=== PATIENT | male | born 2005 | race Caucasian/White ===

== ENCOUNTER 2025-07-08 14:45 | Outpatient (RCR) | payer OTHER, SELFPAY ==
[2025-06-24 10:01] VITALS: BP 135/93; PULSE 68; RESP 14; TEMP 36.3
--- NOTE | 2025-06-25 09:54 | PCM.WC.PN ---
History of Present Illness Date of Service: 06/24/25 Chief Complaint: The patient is a 20-year-old male presenting with hidradenitis suppurativa. The condition began over a year ago as a single lesion and has progressively worsened, particularly over the summer, with increased flare-ups and the development of two cysts adjacent to each other. The lesions have been bleeding and producing pus, prompting the patient to seek dermatological consultation. The biometrics consultant referred him to us for potential excision. The patient denies any history of smoking, which is beneficial as smoking can exacerbate hidradenitis suppurativa. He reports no significant medical problems aside from taking Lexapro daily. 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 ROS: - Dermatological: Reports bleeding and pus from cystic lesions. - General: Denies smoking history. - Psychiatric: Reports daily use of Lexapro. No history of Crohn's/Inflammatory Bowel Disease Attestation: Documentation on this patient encounter was supported using ambient scribe technology/ voice AI technology. The patient consented to recording for the purpose of documenting the encounter. Provider reviewed content of the generated note prior to signature. Subjective Subjective Current encounter 24 June 2025: Patient here for follow-up for hidradenitis. He has not yet had his appointment with colorectal surgery but is in the scheduling process with their team (referral made at last visit for a sinus tract within the perineum just anterior to the anus). He presents with some improvement today secondary to starting the doxycycline per his biometrics consultant. The areas are less inflamed and there is less drainage. Objective Data Objective Data Vital Signs: Vital Signs Temp Pulse Resp BP 97.4 F L 68 14 135/93 H 06/24/25 10:01 06/24/25 10:01 06/24/25 10:06/24/25 10:01 Charges/Coding Procedures Integumentary [id number]: [id number] Maren subq tissue 20 sq cm/< Physical Exam Narrative - Dermatological: Gluteal Region Examination revealed two cystic lesions near the gluteal cleft on the left, one with exophytic growth and another with sinus tract formation. Camejo Stage 2 HS These areas measure 1 x 2 cm and are in a small cluster. Perineum Between anus and scrotum there is a sinus tract with drainage consistent with HS. No surrounding induration or crepitus, no real TTP (no signs of surrounding acute infection, rather chronic Camejo stage 2 disease). Tunneling superiorly towards the anus ~3 cm. Debridement Note Debridement Note Wound debrided: Left gluteal wounds from the hidradenitis Laterality: Left Wound Grade/Stage: Stage III Type of Debridement: Excisional debridement Anesthesia Used: 4% Lidocaine Solution Depth: in the subcutaneous layer Percentage of wound debrided: 100 Instrument Used: 7mm curette, #15 blade and Forceps Tissue Removed: Necrotic fibrinous exudate and scar tracks around hidradenitis cavity Severity: Fat Layer Exposed Amount of bleeding with debridement: Mild Bleeding Controlled with: Compression and gauze Patient tolerated procedure: Patient tolerated procedure well Debridement Free Text: 15 blade scalpel was used to excise the left gluteal hidradenitis wounds and scar tracks that had developed around the draining sinuses. They were open for packing Post-Debridement Measurements and Additional Note: Post-Debridement Measurements/Treatment - Nurse 1 - General Ulcer Assessment Start: 06/24/25 10:01 Freq: Status: Active Protocol: RUTHIE.CARLOS Activity Type Activity Date Activity User E-sign Co-sign Detail Recorded Client Recorded Date Recorded By Document 06/24/25 10:01 [id number] 06/24/25 10:08 06/24/25 10:01 - Today's Visit Information Type of service Initial Visit Arrival Mode Ambulatory Transfer Assistance None Patient Identification Verified (Name & Yes ) Patient Requires Transmission-Based No Precautions Vital Signs Temperature (97.8 F-99.1 F) 97.4 F L Temperature Source Temporal Pulse Rate (60-100) 68 Pulse Location Monitor Respiratory Rate (12-18) 14 Respiratory rate source Observation Blood Pressure (90/60-120/80) 135/93 H Blood Pressure Mean (mm Hg) 107 Source Monitor Position Sitting Blood Pressure Location Left Arm History Since Last Visit- (Skip if this is Patient's initial visit) Have you changed medications since your No last visit? Any new allergies or adverse reactions No Had a fall/change in ADL's that may No increase risk of falls Signs or symptoms of abuse and/or No neglect since last visit Have you been in the hospital since your No last visit? Has dressing in place as prescribed Yes Has compression in place as prescribed N/A Has offloadiing in place as prescribed N/A Experienced any changes in pain level or No management Pain Scale: 0-10 Numeric Is Patient Pain Free? Yes - Nurse 1 - General Ulcer Measurement Start: 06/24/25 10:01 Freq: Status: Active Protocol: Activity Type Activity Date Activity User E-sign Co-sign Detail Recorded Client Recorded Date Recorded By Document 06/24/25 10:01 MELANY [id number] 06/24/25 10:08 MELANY 06/24/25 10:01 Wound Center Nurse 1 #1 coccyx cluster -Current Size (cm) - Length 0.1 -Current Size (cm) - Width 0.1 -Current Size (cm) - Depth 0.1 -Total Square Cm 0.01 -Exudate Amt None Present -Wound Margin Distinct, Outline Attached -Granulation Amt None Present (0 %) -Necrosis Amt None Present (0 %) -Texture (Komal-wound Skin Appearance) Assessed -Moisture (Komal-wound Skin Appearance) Assessed -Color (Komal-wound Skin Appearance) Erythema -Temperature (Komal-wound Skin No Abnormality Appearance) (Pt Warm) -Tenderness on Palpation (Komal-wound No Skin Appearance) -Ulcer Cleansing Rinsed/ Irrigated with Saline -Foul Odor after Cleansing No -Anesthetic Used 5% Lidocaine Gel - Nurse 2 - General Ulcer CM Notes Start: 06/24/25 10:01 Freq: Status: Active Protocol: Activity Type Activity Date Activity User E-sign Co-sign Detail Recorded Client Recorded Date Recorded By Document 06/24/25 10:39 NASEEM [id number] 06/24/25 10:50 NASEEM 06/24/25 10:39 Wound Center Nurse 2 -Time 10:46 -Correct Patient Yes -Correct Side, Site, Position Yes -Correct Procedure Yes -Procedure Performed Yes -Type of Procedure Debridement -Clinical Debridement Subcutaneous -Tissue Removed Subcutaneous -Post Debridement (cm) - Length 1 -Post Debridement (cm) - Width 1 -Post Debridement (cm) - Depth 2 -Total Square (Post) (cm) 1 -Area of Debridement (cm) - Length 1 -Area of Debridement (cm) - Width 1 -Total Square (Area) (cm) 1 -Tunneling No -Undermining/Tunneling No -Circular Undermining No -Wound/Ulcer Outcome Not Healed -Ulcer Cleansing Rinsed/ Irrigated with Saline -Foul Odor after Cleansing No -Bioengineered Tissue No -Bleeding Controlled with Pressure -Treatment Response Procedure Tolerated Well -Offloading No -Debridement - Subq, 1st 20sq cm Yes Pain Scale: 0-10 Numeric Is Patient Pain Free? Yes WC - Nurse 3 - General Ulcer D/C NN Start: 06/24/25 10:01 Freq: Status: Active Protocol: Activity Type Activity Date Activity User E-sign Co-sign Detail Recorded Client Recorded Date Recorded By Document 06/24/25 10:58 ML [id number] 06/24/25 10:59 ML 06/24/25 10:58 Wound Care Center Nurse 3 #1 coccyx cluster -Ulcer Cleansing Rinsed/ Irrigated with Saline -Primary Dressing Applied Aquacel AG 4x4 -Primary Dressing Covered/Secured with Dry Gauze, Secured with Tape -Aquacel AG 4x4 1 Pain Scale: 0-10 Numeric Is Patient Pain Free? Yes Assessment/Plan Assessment/Plan (1) Hidradenitis suppurativa: CODE(S): L73.2 - Hidradenitis suppurativa PLAN: Twice daily wet-to-dry dressings with Dakin's to the left gluteal wounds For the sinus tract and hidradenitis cavities around the anus he has been referred to colorectal surgery. The excised left gluteal wounds are deep and appear to tunnel significantly in the direction of the anus. I am concerned that there could be some sort of fistulous tract, and I am therefore happy with the plan that he is being referred to colorectal surgery . There was no purulent or feculent drainage on my exam today, so this is lower on the differential, but he needs to be worked up for this problem as these areas are very close to his anus. Also, planning to use electric shaver to reduce the hair burden in the area and keep the area clean with soapy water twice daily when he does the twice daily dressing changes (discussed). Patient will follow-up with Dr. Talavera, director of the wound care center, next week in the office, and will see me the following week. Continue plan for scheduling follow-up with colorectal surgery at [facility] (our office called them today and confirm that his referral is appropriately within the scheduling system and they are going to schedule him an appointment shortly).
--- NOTE | 2025-06-26 09:30 | WC ---
PHOTO-COCCYX 06/24/25
[2025-07-02 14:45] VITALS: BP 144/83; PULSE 72; RESP 16; TEMP 35.8
--- NOTE | 2025-07-03 12:53 | PCM.WC.HP ---
History of Present Illness Date of Service: 07/02/25 Chief Complaint: Hidradenitis suppurativa of the perineal and buttock region The condition began over a year ago as a single lesion and has progressively worsened, particularly over the summer, with increased flare-ups and the development of two cysts adjacent to each other. The lesions have been bleeding and producing pus, prompting the patient to seek dermatological consultation. The commercial baker helper referred him to us for potential excision. The patient denies any history of smoking, which is beneficial as smoking can exacerbate hidradenitis suppurativa. He reports no significant medical problems aside from taking Lexapro daily. 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 ROS: - Dermatological: Reports bleeding and pus from cystic lesions. - General: Denies smoking history. - Psychiatric: Reports daily use of Lexapro. No history of Crohn's/Inflammatory Bowel Disease Attestation: Documentation on this patient encounter was supported using ambient scribe technology/ voice AI technology. The patient consented to recording for the purpose of documenting the encounter. Provider reviewed content of the generated note prior to signature. History of Wound: This is a generally healthy 20-year-old male who presented recently for evaluation by Dr. Martins, Plastic Surgeon, relative to the development of sites in the perineal and buttock region which are suspected to represent hidradenitis suppurativa. According to the patient, these lesions have been present for approximately 1 year. The condition began over a year ago as a single lesion, and has progressively worsened, particularly over the summer, with increased flareups and the development of additional sites adjacent to each other. The lesions have been bleeding and draining suppurative material, prompting the patient to recently seek dermatological consultation. The commercial baker helper has referred to the [facility] for further evaluation and management, and for consideration of excision of the involved sites. The patient reports no significant medical problems aside from taking Lexapro daily. He is physically active, lifts weights at a local gym, and is employed in a warehouse. The patient denies a history of Crohn's disease or other inflammatory bowel diseases. He is not a smoker. [facility] Medical History no medical history no medical history Home Medications ?Medication ?Instructions ?Recorded ?Last Taken ?Type escitalopram oxalate 10 mg tablet 10 mg PO QDAY 06/14/25 Unknown History Allergy/AdvReac Type Severity Reaction Status Date / Time No Known Allergies Allergy Unverified 06/14/25 10:24 Social History Smoking Status: Never smoker Vital Signs Vital Signs Vital Signs: 07/02/25 14:45 Temperature 96.4 F L Temperature Source Temporal Pulse Rate 72 Respiratory Rate 16 Blood Pressure 144/83 H Blood Pressure Mean 103 Blood Pressure Source Monitor Blood Pressure Position Sitting Blood Pressure Location Right Arm Physical Exam Const alert, oriented x3, no apparent distress, average body habitus, no limitations, healthy appearing and well nourished General Appearance: cooperative, comfortable, well kempt and well developed Orientation / Consciousness: awake, oriented to person, oriented to place and oriented to time Exam Limitations: no limitations HEENT normocephalic and head/scalp atraumatic Head and Scalp: normal to inspection, normocephalic and atraumatic Face and Sinus: normal facial exam Nose: external nose normal External Ear: external ears normal Eyes EOMs intact bilaterally General Eye: normal appearance of both eyes Neck full ROM Resp normal respiratory effort, normal air movement, no retractions and no use of accessory muscles Effort and Inspection: able to speak in complete sentences Extremity no calf tenderness General Extremity: Negative for clubbing or cyanosis Skin Wound Narrative: An ulceration is noted on the left upper buttock. The ulceration appears to be full-thickness, extending through all layers of the dermis and into the subcutaneous tissues. The ulceration appears generally pink in appearance, with a small amount of bioburden. Dimensions are documented elsewhere. There is no sign of infection or cellulitis. There is a second ulceration noted within the cleft of the buttocks, located in the midline. It is several centimeters superior to the anus. It is quite small in size, and dimensions are documented elsewhere. However, there is tunneling of approximately 2 cm inferiorly, which is appreciated by virtue of gentle exploration with a probe. There is no drainage from this tunneled ulceration. There is no obvious sign of infection or cellulitis. Dimensions are documented elsewhere. Also of note is the fact that this area is extremely hairbearing. Furthermore, there is an erythematous rash within the intertriginous portion of the medial buttocks bilaterally. This has the appearance of a fungal or tenia infection (tenia cruris). Neuro oriented x3, CN's II-XII intact bilaterally, moves all extremities, no focal motor deficits and no sensory deficits noted Sensorium / Orientation: awake, alert, oriented to person, oriented to place and oriented to time Speech: speech normal Psych Appearance: grossly normal and appropriate Attitude: calm Activity / Motor Behavior: appropriate eye contact Speech: normal speech Mood & Affect: euthymic mood Thought Process: normal thought process Thought Content: normal thought content Attention / Concentration: attention grossly intact Debridement Note Debridement Note Wound debrided: Left upper buttock Laterality: Left Type of Debridement: Excisional debridement Anesthesia Used: 5% Lidocaine Gel Depth: Down to and including healthy tissue and in the subcutaneous layer Percentage of wound debrided: 100 Instrument Used: 3mm curette Tissue Removed: Bioburden Severity: Fat Layer Exposed Amount of bleeding with debridement: Mild Bleeding Controlled with: Compression and gauze Patient tolerated procedure: Patient tolerated procedure well Post-Debridement Measurements and Additional Note: Post-Debridement Measurements/Treatment - Nurse 1 - General Ulcer Assessment Start: 06/24/25 10:01 Freq: Status: Active Protocol: WERO Activity Type Activity Date Activity User E-sign Co-sign Detail Recorded Client Recorded Date Recorded By Document 06/24/25 10:01 ML [id number] 06/24/25 10:08 ML Document 07/02/25 14:45 KW [id number] 07/02/25 14:49 KW 06/24/25 07/02/25 10:01 14:45 - Today's Visit Information Type of service Initial Visit Follow-up Visit (Physician/ASSISTANT TERMINAL MANAGER ) Arrival Mode Ambulatory Ambulatory Transfer Assistance None None Patient Identification Verified (Name & Yes Yes ) Patient Requires Transmission-Based No No Precautions Vital Signs Temperature (97.8 F-99.1 F) 97.4 F L 96.4 F L Temperature Source Temporal Temporal Pulse Rate (60-100) 68 72 Pulse Location Monitor Monitor Respiratory Rate (12-18) 14 16 Respiratory rate source Observation Observation Blood Pressure (90/60-120/80) 135/93 H 144/83 H Blood Pressure Mean 107 103 Source Monitor Monitor Position Sitting Sitting Blood Pressure Location Left Arm Right Arm History Since Last Visit- (Skip if this is Patient's initial visit) Have you changed medications since your No No last visit? Any new allergies or adverse reactions No No Had a fall/change in ADL's that may No No increase risk of falls Signs or symptoms of abuse and/or No No neglect since last visit Have you been in the hospital since your No No last visit? Has dressing in place as prescribed Yes Yes Has compression in place as prescribed N/A N/A Has offloadiing in place as prescribed N/A N/A Experienced any changes in pain level or No No management Left Footwear Regular Shoe Right Footwear Regular Shoe Pain Scale: 0-10 Numeric Is Patient Pain Free? Yes Yes RUTHIE - Nurse 1 - General Ulcer Measurement Start: 06/24/25 10:01 Freq: Status: Active Protocol: Activity Type Activity Date Activity User E-sign Co-sign Detail Recorded Client Recorded Date Recorded By Document 06/24/25 10:01 ML [id number] 06/24/25 10:08 ML Document 07/02/25 14:45 KW [id number] 07/02/25 14:49 KW 06/24/25 07/02/25 10:01 14:45 Wound Center Nurse 1 #1 coccyx cluster -Combined with other wound No -Current Size (cm) - Length 0.1 1 -Current Size (cm) - Width 0.1 0.5 -Current Size (cm) - Depth 0.1 0.1 -Total Square Cm 0.01 0.5 -Date of Last Picture (Recall this 07/02/25 field) -Photo Taken Yes -Tunneling No -Undermining/Tunneling No -Circular Undermining No -Exudate Amt None Present Medium -Exudate Type Serosanguineous -Wound Margin Distinct, Distinct, Outline Outline Attached Attached -Granulation Amt None Present (0 Medium (34-66%) %) -Granulation Quality Red -Slough/Fibrin Yes -Necrosis Amt None Present (0 Medium (34-66%) %) -Necrotic Tissue Type Adherent Slough -Texture (Komal-wound Skin Appearance) Assessed Assessed -Moisture (Komal-wound Skin Appearance) Assessed Assessed -Color (Komal-wound Skin Appearance) Erythema Assessed -Temperature (Komal-wound Skin No Abnormality No Abnormality Appearance) (Pt Warm) (Pt Warm) -Tenderness on Palpation (Komal-wound No No Skin Appearance) -Ulcer Cleansing Rinsed/ Rinsed/ Irrigated with Irrigated with Saline Saline -Foul Odor after Cleansing No No -Anesthetic Used 5% Lidocaine 5% Lidocaine Gel Gel RUTHIE - Nurse 2 - General Ulcer CM Notes Start: 06/24/25 10:01 Freq: Status: Active Protocol: Activity Type Activity Date Activity User E-sign Co-sign Detail Recorded Client Recorded Date Recorded By Document 06/24/25 10:39 JF [id number] 06/24/25 10:50 JF Document 07/02/25 15:10 [id number] 07/02/25 15:19 JF 06/24/25 07/02/25 10:39 15:10 Wound Center Nurse 2 #1 coccyx cluster -Time 10:46 15:15 -Correct Patient Yes Yes -Correct Side, Site, Position Yes Yes -Correct Procedure Yes Yes -Procedure Performed Yes Yes -Type of Procedure Debridement Debridement -Clinical Debridement Subcutaneous Subcutaneous -Tissue Removed Subcutaneous Subcutaneous -Post Debridement (cm) - Length 1 1 -Post Debridement (cm) - Width 1 1 -Post Debridement (cm) - Depth 2 2 -Total Square (Post) (cm) 1 1 -Area of Debridement (cm) - Length 1 1 -Area of Debridement (cm) - Width 1 1 -Total Square (Area) (cm) 1 1 -Tunneling No No -Undermining/Tunneling No No -Circular Undermining No No -Wound/Ulcer Outcome Not Healed Not Healed -Ulcer Cleansing Rinsed/ Rinsed/ Irrigated with Irrigated with Saline Saline -Foul Odor after Cleansing No No -Bioengineered Tissue No No -Bleeding Controlled with Pressure Pressure -Treatment Response Procedure Procedure Tolerated Well Tolerated Well -Offloading No No -Debridement - Subq, 1st 20sq cm Yes Yes Pain Scale: 0-10 Numeric Is Patient Pain Free? Yes Yes - Nurse 3 - General Ulcer D/C NN Start: 06/24/25 10:01 Freq: Status: Active Protocol: Activity Type Activity Date Activity User E-sign Co-sign Detail Recorded Client Recorded Date Recorded By Document 06/24/25 10:58 ML [id number] 06/24/25 10:59 ML Document 07/02/25 15:23 [facility] [id number] 07/02/25 15:24 [facility] 06/24/25 07/02/25 10:58 15:23 Wound Care Center Nurse 3 #1 coccyx cluster -Ulcer Cleansing Rinsed/ Rinsed/ Irrigated with Irrigated with Saline Saline -Foul Odor after Cleansing No -Primary Dressing Applied Aquacel AG 4x4 Aquacel AG 4x4 -Other Dressing drsg per kw multisensor intelligence officer -Primary Dressing Covered/Secured with Dry Gauze, Dry Gauze, Secured with Secured with Tape Tape -Aquacel AG 4x4 1 1 Treatment Response Procedure Tolerated Well Pain Scale: 0-10 Numeric Is Patient Pain Free? Yes Yes WC - Visit Discharge Discharge Condition Stable Ambulatory Status Ambulatory Transportation Private Auto Additional Wound Wound debrided: Sacrococcygeal midline tunneled ulceration Laterality: Not Applicable Type of Debridement: Excisional debridement Anesthesia Used: 5% Lidocaine Gel Depth: Down to and including healthy tissue and in the subcutaneous layer Percentage of wound debrided: 100 Instrument Used: - (1 mm curette) Tissue Removed: Bioburden and devitalized tissue Severity: Fat Layer Exposed Amount of bleeding with debridement: Mild Bleeding Controlled with: Compression and gauze Patient tolerated procedure: Patient tolerated procedure well Charges/Coding Multi Select Codes Visit Charges Office Visit/Consults: 98545 OV L4 New 45 min Integumentary Integumentary CPT Codes: 67090 Maren subq tissue 20 sq cm/< Assessment/Plan Assessment/Plan (1) Hidradenitis suppurativa: CODE(S): L73.2 - Hidradenitis suppurativa PLAN: Plan This is a 20-year-old healthy and active male who recently presented with lesions in the perineal and buttock region which are suspected to represent hidradenitis suppurativa. He is a patient of Dr. Martins, Plastic Surgeon, and will remain under Dr. Martins's care. It is noted that the patient has been referred for consultation with a colorectal surgeon at [facility], and that appointment is scheduled for July 17, 2025. Until seen next week by Dr. Martins, the patient is to continue current measures. These are to include the use of enqzm-dl-ohb gauze dressing changes with Dakins solution. The patient has been advised to use an electric shaver to rid the involved area of hair. He is to continue on doxycycline 100 mg twice daily, as previously prescribed. In addition, a prescription is to be issued for clotrimazole cream for topical use to the intertriginous portion of the buttocks, where the patient is noted to have an erythematous rash, suspected to be tenia corporis. The patient is to return in 1 week for reevaluation by Dr. Martins. : Total time: 48 minutes
--- NOTE | 2025-07-03 14:22 | WC ---
PHOTO - COCCYX 07/02/25
[2025-07-08 15:27] VITALS: BP 129/84; PULSE 86; RESP 14; TEMP 35.7
--- NOTE | 2025-07-09 10:48 | PCM.WC.PN ---
History of Present Illness Date of Service: 07/08/25 Chief Complaint: Hidradenitis suppurativa of the perineal and buttock region The condition began over a year ago as a single lesion and has progressively worsened, particularly over the summer, with increased flare-ups and the development of two cysts adjacent to each other. The lesions have been bleeding and producing pus, prompting the patient to seek dermatological consultation. The special agent in charge referred him to us for potential excision. The patient denies any history of smoking, which is beneficial as smoking can exacerbate hidradenitis suppurativa. He reports no significant medical problems aside from taking Lexapro daily. 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 ROS: - Dermatological: Reports bleeding and pus from cystic lesions. - General: Denies smoking history. - Psychiatric: Reports daily use of Lexapro. No history of Crohn's/Inflammatory Bowel Disease Attestation: Documentation on this patient encounter was supported using ambient scribe technology/ voice AI technology. The patient consented to recording for the purpose of documenting the encounter. Provider reviewed content of the generated note prior to signature. History of Wound: HPI from Dr. Talavera visit last week this is a generally healthy 20-year-old male who presented recently for evaluation by Dr. Martins, Plastic Surgeon, relative to the development of sites in the perineal and buttock region which are suspected to represent hidradenitis suppurativa. According to the patient, these lesions have been present for approximately 1 year. The condition began over a year ago as a single lesion, and has progressively worsened, particularly over the summer, with increased flareups and the development of additional sites adjacent to each other. The lesions have been bleeding and draining suppurative material, prompting the patient to recently seek dermatological consultation. The special agent in charge has referred to the [facility] for further evaluation and management, and for consideration of excision of the involved sites. The patient reports no significant medical problems aside from taking Lexapro daily. He is physically active, lifts weights at a local gym, and is employed in a warehouse. The patient denies a history of Crohn's disease or other inflammatory bowel diseases. He is not a smoker. Subjective Subjective 24 June 2025: Patient here for follow-up for hidradenitis. He has not yet had his appointment with colorectal surgery but is in the scheduling process with their team (referral made at last visit for a sinus tract within the perineum just anterior to the anus). He presents with some improvement today secondary to starting the doxycycline per his special agent in charge. The areas are less inflamed and there is less drainage. Current encounter 08 July 2025: Patient doing well overall and now has an appointment with colorectal surgery for his KOMAL anal hidradenitis Objective Data Objective Data Vital Signs: Vital Signs Temp Pulse Resp BP 96.3 F L 86 14 129/84 H 07/08/25 15:27 07/08/25 15:27 07/08/25 15:27 07/08/25 15:27 Charges/Coding Procedures Integumentary [id number]: [id number] Maren subq tissue 20 sq cm/< Physical Exam Narrative - Dermatological: Gluteal Region There is now a Camejo stage I 1 x 1 cm hidradenitis lesion in the left upper buttocks Perineum Between anus and scrotum there is a sinus tract with drainage consistent with HS. No surrounding induration or crepitus, no real TTP (no signs of surrounding acute infection, rather chronic Camejo stage 2 disease). Tunneling superiorly towards the anus ~3 cm. There is more drainage today than previous weeks Debridement Note Debridement Note Wound debrided: Left upper gluteal wound Laterality: Left Wound Grade/Stage: Stage III Type of Debridement: Excisional debridement Anesthesia Used: 4% Lidocaine Solution Depth: in the subcutaneous layer Percentage of wound debrided: 100 Instrument Used: 7mm curette Tissue Removed: Fibrinous exudate and hypertrophic granulation tissue Severity: Fat Layer Exposed Amount of bleeding with debridement: Mild Bleeding Controlled with: Pressure Patient tolerated procedure: Patient tolerated procedure well Post-Debridement Measurements and Additional Note: Post-Debridement Measurements/Treatment RUTHIE - Nurse 1 - General Ulcer Assessment Start: 06/24/25 10:01 Freq: Status: Active Protocol: WERO Activity Type Activity Date Activity User E-sign Co-sign Detail Recorded Client Recorded Date Recorded By Document 06/24/25 10:01 ML [id number] 06/24/25 10:08 ML Document 07/02/25 14:45 KW [id number] 07/02/25 14:49 KW Document 07/08/25 15:27 ML [id number] 07/08/25 15:31 ML 06/24/25 07/02/2507/08/25 10:01 14:45 15:27 - Today's Visit Information Type of service Initial Visit Follow-up Visit Follow-up Visit (Physician/SVP RESEARCH AND STRATEGIC ANALYSIS (Physician/SVP RESEARCH AND STRATEGIC ANALYSIS ) ) Arrival Mode Ambulatory Ambulatory Ambulatory Transfer Assistance None None Patient Identification Verified (Name & Yes Yes Yes ) Patient Requires Transmission-Based No No No Precautions Vital Signs Temperature (97.8 F-99.1 F) 97.4 F L 96.4 F L 96.3 F L Temperature Source Temporal Temporal Temporal Pulse Rate (60-100) 68 72 86 Pulse Location Monitor Monitor Monitor Respiratory Rate (12-18) 14 16 14 Respiratory rate source Observation Observation Monitor Blood Pressure (90/60-120/80) 135/93 H 144/83 H 129/84 H Blood Pressure Mean (mm Hg) 107 103 99 Source Monitor Monitor Monitor Position Sitting Sitting Sitting Blood Pressure Location Left Arm Right Arm Right Arm History Since Last Visit- (Skip if this is Patient's initial visit) Have you changed medications since your No No No last visit? Any new allergies or adverse reactions No No No Had a fall/change in ADL's that may No No No increase risk of falls Signs or symptoms of abuse and/or No No No neglect since last visit Have you been in the hospital since your No No last visit? Has dressing in place as prescribed Yes Yes No Has compression in place as prescribed N/A N/A N/A Has offloadiing in place as prescribed N/A N/A N/A Experienced any changes in pain level or No No No management Left Footwear Regular Shoe Right Footwear Regular Shoe Pain Scale: 0-10 Numeric Is Patient Pain Free? Yes Yes Yes - Nurse 1 - General Ulcer Measurement Start: 06/24/25 10:01 Freq: Status: Active Protocol: Activity Type Activity Date Activity User E-sign Co-sign Detail Recorded Client Recorded Date Recorded By Document 06/24/25 10:01 ML [id number] 06/24/25 10:08 ML Document 07/02/25 14:45 KW [id number] 07/02/25 14:49 KW Document 07/08/25 15:27 ML [id number] 07/08/25 15:31 ML 06/24/25 07/02/25 07/08/25 10:01 14:45 15:27 Wound Center Nurse 1 #1 coccyx cluster -Combined with other wound No -Current Size (cm) - Length 0.1 1 0.1 -Current Size (cm) - Width 0.1 0.5 0.1 -Current Size (cm) - Depth 0.1 0.1 0.1 -Total Square Cm 0.01 0.5 0.01 -Date of Last Picture (Recall this 07/02/25 field) -Photo Taken Yes -Tunneling No -Undermining/Tunneling No -Circular Undermining No -Exudate Amt None Present Medium Medium -Exudate Type Serosanguineous Yellow/Green -Wound Margin Distinct, Distinct, Outline Outline Attached Attached -Granulation Amt None Present (0 Medium (34-66%) Medium (34-66%) %) -Granulation Quality Red -Slough/Fibrin Yes No -Necrosis Amt None Present (0 Medium (34-66%) Small (1-33%) %) -Necrotic Tissue Type Adherent Slough Adherent Slough -Texture (Komal-wound Skin Appearance) Assessed Assessed Assessed -Moisture (Komal-wound Skin Appearance) Assessed Assessed Assessed -Color (Komal-wound Skin Appearance) Erythema Assessed Assessed -Temperature (Komal-wound Skin No Abnormality No Abnormality No Abnormality Appearance) (Pt Warm) (Pt Warm) (Pt Warm) -Tenderness on Palpation (Komal-wound No No No Skin Appearance) -Ulcer Cleansing Rinsed/ Rinsed/ Rinsed/ Irrigated with Irrigated with Irrigated with Saline Saline Saline -Foul Odor after Cleansing No No No -Anesthetic Used 5% Lidocaine 5% Lidocaine 5% Lidocaine Gel Gel Gel WC - Nurse 2 - General Ulcer CM Notes Start: 06/24/25 10:01 Freq: Status: Active Protocol: Activity Type Activity Date Activity User E-sign Co-sign Detail Recorded Client Recorded Date Recorded By Document 06/24/25 10:39 [id number] 06/24/25 10:50 Document 07/02/25 15:10 [id number] 07/02/25 15:19 Document 07/08/25 15:42 [id number] 07/08/25 15:44 06/24/25 07/02/25 07/08/25 10:39 15:10 15:42 Wound Center Nurse 2 #1 coccyx cluster -Time 10:46 15:15 15:42 -Correct Patient Yes Yes Yes -Correct Side, Site, Position Yes Yes Yes -Correct Procedure Yes Yes Yes -Procedure Performed Yes Yes Yes -Type of Procedure Debridement Debridement Debridement -Clinical Debridement Subcutaneous Subcutaneous Subcutaneous -Tissue Removed Subcutaneous Subcutaneous Subcutaneous -Post Debridement (cm) - Length 1 1 1 -Post Debridement (cm) - Width 1 1 1 -Post Debridement (cm) - Depth 2 2 2 -Total Square (Post) (cm) 1 1 1 -Area of Debridement (cm) - Length 1 1 1 -Area of Debridement (cm) - Width 1 1 1 -Total Square (Area) (cm) 1 1 1 -Tunneling No No No -Undermining/Tunneling No No No -Circular Undermining No No No -Wound/Ulcer Outcome Not Healed Not Healed Not Healed -Ulcer Cleansing Rinsed/ Rinsed/ Rinsed/ Irrigated with Irrigated with Irrigated with Saline Saline Saline -Foul Odor after Cleansing No No No -Bioengineered Tissue No No No -Bleeding Controlled with Pressure Pressure Pressure -Treatment Response Procedure Procedure Procedure Tolerated Well Tolerated Well Tolerated Well -Offloading No No No -Debridement - Subq, 1st 20sq cm Yes Yes Yes Pain Scale: 0-10 Numeric Is Patient Pain Free? Yes Yes Yes - Nurse 3 - General Ulcer D/C NN Start: 06/24/25 10:01 Freq: Status: Active Protocol: Activity Type Activity Date Activity User E-sign Co-sign Detail Recorded Client Recorded Date Recorded By Document 06/24/25 10:58 ML [id number] 06/24/25 10:59 ML Document 07/02/25 15:23 [facility] [id number] 07/02/25 15:24 [facility] Document 07/08/25 16:06 [id number] 07/08/25 16:07 06/24/25 07/02/25 07/08/25 10:58 15:23 16:06 Wound Care Center Nurse 3 #1 coccyx cluster -Ulcer Cleansing Rinsed/ Rinsed/ Rinsed/ Irrigated with Irrigated with Irrigated with Saline Saline Saline -Foul Odor after Cleansing No No -Primary Dressing Applied Aquacel AG 4x4 Aquacel AG 4x4 Aquacel AG 4x4 -Other Dressing drsg per kw purchasing department clerk -Primary Dressing Covered/Secured with Dry Gauze, Dry Gauze, Dry Gauze, Secured with Secured with Secured with Tape Tape Tape -Aquacel AG 4x4 1 1 1 Treatment Response Procedure Tolerated Well Pain Scale: 0-10 Numeric Is Patient Pain Free? Yes Yes Yes WC - Visit Discharge Discharge Condition Stable Stable Ambulatory Status Ambulatory Ambulatory Transportation Private Auto Private Auto Clinical Summary of Care Provided Yes Assessment/Plan Assessment/Plan (1) Hidradenitis suppurativa: CODE(S): L73.2 - Hidradenitis suppurativa PLAN: Twice daily wet-to-dry dressings with Dakin's to the left gluteal wounds For the sinus tract and hidradenitis cavities around the anus he has been referred to colorectal surgery. The excised left gluteal wounds are deep and appear to tunnel significantly in the direction of the anus. I am concerned that there could be some sort of fistulous tract, and I am therefore happy with the plan that he is being referred to colorectal surgery . There was no purulent or feculent drainage on my exam today, so this is lower on the differential, but he needs to be worked up for this problem as these areas are very close to his anus. Also, planning to use electric shaver to reduce the hair burden in the area and keep the area clean with soapy water twice daily when he does the twice daily dressing changes (discussed). Patient will follow-up with Dr. Talavera, director of the wound care center, next week in the office, and will see me the following week. Continue plan for scheduling follow-up with colorectal surgery at [facility] (our office called them today and confirm that his referral is appropriately within the scheduling system and they are going to schedule him an appointment shortly). Plan from 08 July 2025: Continue plan for referral to colorectal surgery and patient has an appointment. I will continue to manage left upper gluteal wound but will defer management of the perianal wounds to the colorectal surgeons for evaluation of the tracts as noted above (see concerns above). Patient understands why he is being referred to colorectal surgery and will show them the specific location that I am concerned about (we discussed this today in our clinic visit). I encouraged the patient to bring his parents to this appointment as well, so he can get further assistance with care and navigating the healthcare system.
== END 2025-07-16 23:59 | disposition home or self-care (01) ==
LOC: WC 14:45
PROVIDERS: PCP Registered Nurse; Referring Provider Surgery Plastic and Reconstructive Surgery; Visit Provider Surgery Plastic and Reconstructive Surgery
DX: L73.2 Hidradenitis suppurativa (principal)
CPT/HCPCS: 11042; 99214; G0463

== ENCOUNTER 2025-07-22 14:21 | Outpatient (RCR) | payer OTHER, SELFPAY ==
[2025-07-22 14:38] VITALS: BP 118/69; PULSE 87; RESP 16; TEMP 36.8
--- NOTE | 2025-07-22 15:07 | PCM.WC.PN ---
History of Present Illness Date of Service: 07/22/25 Chief Complaint: Hidradenitis suppurativa of the perineal and buttock region The condition began over a year ago as a single lesion and has progressively worsened, particularly over the summer, with increased flare-ups and the development of two cysts adjacent to each other. The lesions have been bleeding and producing pus, prompting the patient to seek dermatological consultation. The internet site designer referred him to us for potential excision. The patient denies any history of smoking, which is beneficial as smoking can exacerbate hidradenitis suppurativa. He reports no significant medical problems aside from taking Lexapro daily. 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 ROS: - Dermatological: Reports bleeding and pus from cystic lesions. - General: Denies smoking history. - Psychiatric: Reports daily use of Lexapro. No history of Crohn's/Inflammatory Bowel Disease Attestation: Documentation on this patient encounter was supported using ambient scribe technology/ voice AI technology. The patient consented to recording for the purpose of documenting the encounter. Provider reviewed content of the generated note prior to signature. History of Wound: HPI from Dr. Talavera visit last week this is a generally healthy 20-year-old male who presented recently for evaluation by Dr. Martins, Plastic Surgeon, relative to the development of sites in the perineal and buttock region which are suspected to represent hidradenitis suppurativa. According to the patient, these lesions have been present for approximately 1 year. The condition began over a year ago as a single lesion, and has progressively worsened, particularly over the summer, with increased flareups and the development of additional sites adjacent to each other. The lesions have been bleeding and draining suppurative material, prompting the patient to recently seek dermatological consultation. The internet site designer has referred to the [facility] for further evaluation and management, and for consideration of excision of the involved sites. The patient reports no significant medical problems aside from taking Lexapro daily. He is physically active, lifts weights at a local gym, and is employed in a warehouse. The patient denies a history of Crohn's disease or other inflammatory bowel diseases. He is not a smoker. Subjective Subjective 24 June 2025: Patient here for follow-up for hidradenitis. He has not yet had his appointment with colorectal surgery but is in the scheduling process with their team (referral made at last visit for a sinus tract within the perineum just anterior to the anus). He presents with some improvement today secondary to starting the doxycycline per his internet site designer. The areas are less inflamed and there is less drainage. 08 July 2025: Patient doing well overall and now has an appointment with colorectal surgery for his yevgeniy-anal hidradenitis Current encounter, 22 July 2025: Patient doing well overall and saw a colorectal surgeon. The colorectal surgeon thinks it is pilonidal disease and these are actually embedded jimenez of hair. He has the patient on the schedule for debridement under anesthesia in 2 weeks time, but switched him to amoxicillin so as to quiet the inflammation in the area prior to the procedure. Objective Data Objective Data Vital Signs: Vital Signs Temp Pulse Resp BP O2 Del Method 98.3 F 87 16 118/69 Room Air 07/22/25 14:38 07/22/25 14:38 07/22/25 14:38 07/22/25 14:38 07/22/25 14:38 Oxygen Delivery Method Room Air Charges/Coding Visit Charges Office Visits / Consults: 82864 OV L2 Est 10min Physical Exam Narrative - Dermatological: Gluteal Region Left upper buttocks healing well, no drainage Perineum Between anus and scrotum there is a sinus tract with drainage consistent with HS. No surrounding induration or crepitus, no real TTP (no signs of surrounding acute infection, rather chronic Camejo stage 2 disease). Tunneling superiorly towards the anus ~3 cm. Similar amounts of drainage Debridement Note Debridement Note No debridement was completed: No debridement was completed today Post-Debridement Measurements and Additional Note: Post-Debridement Measurements/Treatment - Nurse 1 - General Ulcer Assessment Start: 07/22/25 14:38 Freq: Status: Active Protocol: [email or web address].LOWEXT Activity Type Activity Date Activity User E-sign Co-sign Detail Recorded Client Recorded Date Recorded By Document 07/22/25 14:38 [id number] 07/22/25 14:43 07/22/25 14:38 - Today's Visit Information Type of service Follow-up Visit (Physician/WORKING MANAGER ) Arrival Mode Ambulatory Patient Identification Verified (Name & Yes ) Vital Signs Temperature (97.8 F-99.1 F) 98.3 F Temperature Source Temporal Pulse Rate (60-100) 87 Pulse Location Monitor Respiratory Rate (12-18) 16 Respiratory rate source Observation Oxygen Delivery Method Room Air Blood Pressure (90/60-120/80) 118/69 Blood Pressure Mean (mm Hg) 85 Source Monitor Position Sitting Blood Pressure Location Right Arm History Since Last Visit- (Skip if this is Patient's initial visit) Have you changed medications since your No last visit? Any new allergies or adverse reactions No Had a fall/change in ADL's that may No increase risk of falls Signs or symptoms of abuse and/or No neglect since last visit Have you been in the hospital since your No last visit? Has dressing in place as prescribed Yes Has compression in place as prescribed N/A Has offloadiing in place as prescribed N/A Experienced any changes in pain level or No management Pain Scale: 0-10 Numeric Is Patient Pain Free? Yes RUTHIE - Nurse 1 - General Ulcer Measurement Start: 07/22/25 14:38 Freq: Status: Active Protocol: Activity Type Activity Date Activity User E-sign Co-sign Detail Recorded Client Recorded Date Recorded By Document 07/22/25 14:38 [id number] 07/22/25 14:43 07/22/25 14:38 Wound Center Nurse 1 #1 coccyx cluster -Current Size (cm) - Length 0.3 -Current Size (cm) - Width 0.4 -Current Size (cm) - Depth 0.1 -Total Square Cm 0.12 -Date of Last Picture (Recall this 07/22/25 field) -Photo Taken Yes -Epithelialization Small 1-33% -Tunneling No -Undermining/Tunneling No -Circular Undermining No -Exudate Amt None Present -Wound Margin Distinct, Outline Attached -Granulation Amt Large (67-100%) -Granulation Quality Red -Slough/Fibrin No -Necrosis Amt None Present (0 %) -Texture (Yevgeniy-wound Skin Appearance) No Abnormality, Assessed -Moisture (Yevgeniy-wound Skin Appearance) No Abnormality, Assessed -Color (Yevgeniy-wound Skin Appearance) No Abnormality, Assessed -Temperature (Yevgeniy-wound Skin No Abnormality Appearance) (Pt Warm) -Tenderness on Palpation (Yevgeniy-wound No Skin Appearance) -Ulcer Cleansing Soap and Water -Foul Odor after Cleansing No -Anesthetic Used 5% Lidocaine Gel RUTHIE - Nurse 2 - General Ulcer CM Notes Start: 07/22/25 14:38 Freq: Status: Active Protocol: Activity Type Activity Date Activity User E-sign Co-sign Detail Recorded Client Recorded Date Recorded By Document 07/22/25 14:57 DS [id number] 07/22/25 14:57 DS 07/22/25 14:57 Wound Center Nurse 2 -Time 14:57 -Correct Patient Yes -Correct Side, Site, Position Yes -Procedure Performed No -Wound/Ulcer Outcome Not Healed -Foul Odor after Cleansing No -Bioengineered Tissue No -Bleeding Controlled with Pressure -Treatment Response Procedure Tolerated Well Pain Scale: 0-10 Numeric Is Patient Pain Free? Yes Assessment/Plan Assessment/Plan (1) Hidradenitis suppurativa: CODE(S): L73.2 - Hidradenitis suppurativa PLAN: Twice daily wet-to-dry dressings with Dakin's to the left gluteal wounds For the sinus tract and hidradenitis cavities around the anus he has been referred to colorectal surgery. The excised left gluteal wounds are deep and appear to tunnel significantly in the direction of the anus. I am concerned that there could be some sort of fistulous tract, and I am therefore happy with the plan that he is being referred to colorectal surgery . There was no purulent or feculent drainage on my exam today, so this is lower on the differential, but he needs to be worked up for this problem as these areas are very close to his anus. Also, planning to use electric shaver to reduce the hair burden in the area and keep the area clean with soapy water twice daily when he does the twice daily dressing changes (discussed). Patient will follow-up with Dr. Talavera, director of the wound care center, next week in the office, and will see me the following week. Continue plan for scheduling follow-up with colorectal surgery at [facility] (our office called them today and confirm that his referral is appropriately within the scheduling system and they are going to schedule him an appointment shortly). Plan from 08 July 2025: Continue plan for referral to colorectal surgery and patient has an appointment. I will continue to manage left upper gluteal wound but will defer management of the perianal wounds to the colorectal surgeons for evaluation of the tracts as noted above (see concerns above). Patient understands why he is being referred to colorectal surgery and will show them the specific location that I am concerned about (we discussed this today in our clinic visit). I encouraged the patient to bring his parents to this appointment as well, so he can get further assistance with care and navigating the healthcare system. PLAN: Plan Plan from 22 July 2025: I am planning to talk to the colorectal surgeon on the phone and make sure that he is assuming complete care of the perianal disease, which I agree may be pilonidal in nature. I will be available to assist colorectal surgery as needed. I talked to the patient about this plan and he was in agreement. He will continue with his plan for surgery with colorectal surgeon.
--- NOTE | 2025-07-23 11:22 | WC ---
PHOTO-BUTTOCK 07/22/25
== END 2025-07-22 15:12 | disposition home or self-care (01) ==
LOC: WC 14:21
PROVIDERS: PCP Registered Nurse; Referring Provider Surgery Plastic and Reconstructive Surgery; Visit Provider Surgery Plastic and Reconstructive Surgery
DX: L73.2 Hidradenitis suppurativa (principal)
CPT/HCPCS: 99213; G0463